=== PATIENT | male | born 1995 | race Two or more races ===

== ENCOUNTER 2023-06-26 21:11 | Emergency (ER) | payer MEDICAID ==
[~2023-06-26] VITALS: Ht 170.2 cm; Wt 75.0 kg
[2023-06-26 21:27] VITALS: BP 137/61; PULSE 80; RESP 14; TEMP 98.8
[2023-06-26 22:10] LABS: COVID19 ANTIGEN SOFIA FIA NEGATIVE (NEGATIVE); Rapid Influenza A Negative (Negative)
[2023-06-26 22:13] LABS: Rapid Influenza B Positive (Negative)
[2023-06-27 00:02] VITALS: O2SAT 97
== END 2023-06-27 00:12 | disposition home or self-care (01) ==
LOC: ER 21:11
DX: J10.1 Influenza due to other identified influenza virus with other respiratory manifestations (principal); Z20.822 Contact with and (suspected) exposure to COVID-19
CPT/HCPCS: 36415; 87426; 87804

== ENCOUNTER 2024-10-16 11:42 | Emergency (ER) | payer MEDICAID ==
[~2024-10-16] VITALS: Ht 170.2 cm; Wt 84.9 kg
[2024-10-16 12:26] VITALS: BP 138/78; PULSE 71; RESP 16; TEMP 98.9; O2SAT 96
[2024-10-16] MEDS ORDERED: VALA1TAB PO (12:36)
--- NOTE | 2024-10-16 12:36 | ED.PDOC ---
History of Present Illness(SKN HPI Comments 28-year-old male with no past medical history presents to the emergency department with a chief compliant of rash onset 3 days. Patient began experiencing rash on back region, was itchy, burning/stinging sensation, noticed same rash near LT flank region. Patient believed it was an insect bite, used cream for insect bite with no improvement of symptoms. No other symptoms or modifying factors present at this time. Denies eye pain, vision loss, floaters, diplopia Denies fevers chills abdominal pain nausea vomiting diarrhea Denies headache dizziness Denies chest pain shortness of breath difficulty swallowing Chief Complaint: Rash Time Seen by MD: 12:04 Primary Care Provider: NONE History of Present Illness: Medications, Allergies Allergies: Coded Allergies: NO KNOWN ALLERGIES (Unverified , 06/26/23) Home Meds Active Scripts Valacyclovir Hcl (Valtrex) 1 Gm Tab, 1 TAB PO TID for 7 Days, #21 TAB 0 Refills Prov:BRIAN HANSON NP 10/16/24 Information Source: Patient Mode of Arrival: Ambulatory Severity: Moderate Timing: Days Duration: Since onset Prehospital treatment: None Location: Back Mechanism: Spontaneous Onset Developed: Rash Object: None Condition of Object: None Wound Type: None History of: None Associated Signs and Symptoms: Redness Past Medical History PAST MEDICAL HISTORY: Denies Surgical History: Denies all surgeries Family History Family History: Reviewed,noncontributory to illness Social History Smoker: Non-Smoker Alcohol: Denies ETOH Use Drugs: Marijuana Lives In: Home All Other Systems: Reviewed and Negative (as per HPI) Physical Exam General Appearance: No Apparent Distress, Normal HEENT: Normal ENT Inspection, Pharynx Normal, TMs Normal Neck: Full Range of Motion, Non-Tender, Normal, Normal Inspection Respiratory: Chest Non-Tender, Lungs Clear, No Accessory Muscle Use, No Respiratory Distress, Normal Breath Sounds Cardiovascular: No Edema, No JVD, No Murmur, No Gallop, Normal Peripheral Pulses, Regular Rate/Rhythm Breast Exam: Deferred Gastrointestinal: No Organomegaly, Non Tender, No Pulsatile Mass, Normal Bowel Sounds, Soft Genitalia: Deferred Pelvic: Deferred Rectal: Deferred Extremities: No calf tenderness, Normal capillary refill, Normal inspection, Normal range of motion, Non-tender, No pedal edema Musculoskeletal : Apperance: Normal Neurologic: Alert, embedded systems designer II-XII nml as Tested, No Motor Deficits, Normal Affect, Normal Mood, No Sensory Deficits Cerebellar Function: Normal Reflexes: Normal Skin: Dry, Rash (localized vesicular rash to LT flank region, no surrouding erythema, no TTP ) Lymphatic: No Adenopathy Was a procedure done? Was a procedure done?: No X-Ray, Labs, Meds, VS Vital Signs Date Time Temp Pulse Resp B/P (MAP) Pulse Ox O2 Delivery O2 Flow Rate FiO2 10/16/24 12:26 71 16 96 Room Air 10/16/24 12:26 98.9 71 16 138/78 (98) 96 98.9 10/16/24 12:00 98.9 71 16 138/78 (98) 96 98.9 X-Ray, Labs, Meds, VS Comment 28-year-old male with no past medical history presents to the emergency departm ent with a chief compliant of rash onset 3 days. Patient arrives alert and oriented, ABC's intact, afebrile, vital signs stable, saturating well in room air Additional MDM Review of External, Non-ED records: External records reviewed. Discussion with independent historian (EMS, family) history obtained from the patient/parents (if applicable) at bedside Chronic conditions affecting care: None Social determinants of health affecting care: marijuana History of physical exam consistent with shingles Take antiviral medication as prescribed Keep skin clean and dry to reduce bacterial superinfection Wear loosefitting clothing Consider cool astringent soaks Skin lesions usually within 2 to 4 weeks, but complete healing may take 1 to 4 weeks And precautions given Consideration of admission (observation or admission): I considered escalation of care to admission for this patient, however given the reassuring workup, the patient is safe for outpatient management. Time of 1ST Reevaluation: 12:34 Reevaluation 1ST: Improved Patient Education/Counseling: Diagnosis, Treatment Family Education/Counseling: No Family Present Departure 1 Departure Time of Disposition: 12:35 Impression: Primary Impression: Shingles Qualified Codes: B02.9 - Zoster without complications Disposition: HOME / SELF CARE / HOMELESS Condition: Stable e-Prescriptions Valacyclovir Hcl (Valtrex) 1 Gm Tab 1 TAB PO TID for 7 Days, #21 TAB 0 Refills Prov: BRIAN HANSON ANIMAL ECOLOGIST 10/16/24 Discharged With: Relative Critical Care Note Critical Care Time?: No Stability Stability form required: No Heart Score Heart Score: Heart Score Response (Comments) Value History N/A 0 EKG N/A 0 Age N/A 0 Risk Factors N/A 0 Troponin N/A 0 Total 0 I personally scribed for BRIAN HANSON NP ([email or web address]) on 10/16/24 at 12:47. Electronically submitted by Chantel Lobo ([email or web address]). BRIAN HANSON NP Oct 16, 2024 12:36
== END 2024-10-16 12:54 | disposition home or self-care (01) ==
LOC: ER 11:42
DX: B02.9 Zoster without complications (principal)